=== PATIENT | male | born 1945 ===

== ENCOUNTER 2018-05-02 08:54 | Inpatient (IN) | payer MEDICARE, MEDICAID ==
[2018-05-02 09:06] VITALS: BMI 23.6
[2018-05-02] MEDS ORDERED: Morphine 4 MG/ML VIAL IVP ONE (09:46)
--- NOTE | 2018-05-02 09:58 | ED PDOC ---
HPI: Back History Per: Patient, Family (daughter in law in room) History/Exam Limitations: no limitations Onset/Duration Of Symptoms: Hrs Current Symptoms Are (Timing): Still Present Quality Of Discomfort: Sharp, Cramping Pain Scale Rating Of: 8 Exacerbating Factor(s): Nothing Additional Complaint(s): CC: "I have pain in my back and left side" HPI:72 yo male with unremarkable PMHx, presents with c/o left sided lower back and flank pain that started last night after going to bed, the pain is sharp and most of the time constant, intensity is 7 to 8/10, does not change with movements or change of positions, radiates to the left testicle and inner aspect of thigh, accompanied by mild urinary discomfort and diarrhea only x 1 last night. Patient is a poor historian and part of the history is obtained from daughter in law present in room, denies any previous Dx of chronic disease , patient has not visited a doctor in years and denies taking any medication, denies fever, chills, CHO, chest pain, urinary frequency, urinary retention or incontinence, hematuria, hematochezia, LE weakness, paresthesias, or wt loss. PMD: Patient has no doctor - Risk Factors AAA Risk Factors: Pos: Older Than 49 Years Of Age <Torres Dick - Last Filed: 05/02/18 14:18> <Janiya Davalos - Last Filed: 05/02/18 14:26> Time Seen by Provider: 05/02/18 09:15 Chief Complaint (Nursing): Back Pain Past Medical History Reviewed: Historical Data, Nursing Documentation, Vital Signs Vital Signs: Last Vital Signs Temp 97.8 F 05/02/18 09:05 Pulse 68 05/02/18 09:05 Resp 16 05/02/18 09:05 BP 162/91 H 05/02/18 09:05 Pulse Ox 98 05/02/18 09:05 - Medical History PMH: No Chronic Diseases - Surgical History Surgical History: No Surg Hx - Family History Family History: States: Unknown Family Hx - Living Arrangements Living Arrangements: With Family - Social History Current smoker - smoking cessation education provided: No Ex-Smoker (has not smoked in the last 12 months): No Alcohol: None Drugs: Denies <Torres Dick - Last Filed: 05/02/18 14:18> Vital Signs: Last Vital Signs Temp 97.8 F 05/02/18 09:05 Pulse 68 05/02/18 09:05 Resp 16 05/02/18 09:05 BP 162/91 H 05/02/18 09:05 Pulse Ox 98 05/02/18 10:38 <SusannahInessamarjorie Bishop - Last Filed: 05/02/18 14:26> - Home Medications Home Medications: Ambulatory Orders Medication Instructions Recorded No Known Home Med 05/02/18 - Allergies Allergies/Adverse Reactions: Allergies Allergy/AdvReac Type Severity Reaction Status Date / Time No Known Allergies Allergy Verified 05/02/18 09:37 Supervising Attending Note - Supervising Attending Note The Documented history was done by the: Physician Pencils Washer, Attending Physician The documented physical exam was done by the: Physician Pencils Washer, Attending Physician The documented procedures were done by the: Physician Pencils Washer, Attending Physician - Attestation: I have personally seen and examined this patient.: Yes I have fully participated in the care of the patient.: Yes I have reviewed all pertinent clinical information: Yes <Janiya Davalos - Last Filed: 05/02/18 14:26> Review of Systems Constitutional: Negative for: Fever, Chills, Weakness Cardiovascular: Negative for: Chest Pain, Palpitations, Edema Respiratory: Negative for: Shortness of Breath, SOB with Exertion Gastrointestinal: Negative for: Nausea, Hematochezia Genitourinary Male: Negative for: Incontinence Neurological: Negative for: Weakness, Numbness <Torres Dick - Last Filed: 05/02/18 14:18> ROS Statement: Except As Marked, All Systems Reviewed And Found Negative <Janiya Davalos - Last Filed: 05/02/18 14:26> Physical Exam - Reviewed Nursing Documentation Reviewed: Yes Vital Signs Reviewed: Yes - Physical Exam Appears: Positive for: Uncomfortable Head Exam: Positive for: ATRAUMATIC, NORMOCEPHALIC Skin: Positive for: Normal Color, Warm Eye Exam: Positive for: EOMI, PERRL ENT: Positive for: Pharynx Is (moist, no erythema) Neck: Positive for: Painless ROM, Supple Cardiovascular/Chest: Positive for: Regular Rate, Rhythm. Negative for: Edema, JVD Respiratory: Positive for: Normal Breath Sounds Gastrointestinal/Abdominal: Positive for: Bowel Sounds, Soft. Negative for: Tenderness, Mass, Distended, Guarding Male Genital Exam: Positive for: normal genitalia Back: Positive for: L CVA Tenderness. Negative for: Vertebral Tenderness, Muscle Spasm Extremity: Positive for: Normal ROM. Negative for: Pedal Edema Neurologic/Psych: Positive for: Alert, Oriented <Torres Dick - Last Filed: 05/02/18 14:18> - Laboratory Results Result Diagrams: 05/02/18 10:25 05/02/18 10:50 - ECG O2 Sat by Pulse Oximetry: 98 <Torres Dick - Last Filed: 05/02/18 14:18> - Laboratory Results Result Diagrams: 05/02/18 10:25 05/02/18 10:50 <Janiya Davalos Dario - Last Filed: 05/02/18 14:26> Medical Decision Making Medical Decision Makin At this time patient does not meet sepsis criteria, since he meets only 1/ 4 SIRS criteria, even with elevated lactic acid. 1300 Upon further questioning, Per patient and daughter he has seen Dr Alcantara as his PCP once in the past. [address] Verdin who agrees with current management and admission. No interventions are indicated at this time. <Janiya Davalos Dario - Last Filed: 05/02/18 14:26> Disposition <Torres Dick - Last Filed: 05/02/18 14:18> - Patient ED Disposition Is Patient to be Admitted: Yes Discussed With : Raghavendra Oro Doctor Will See Patient In The: Hospital Counseled Patient/Family Regarding: Studies Performed, Diagnosis - Disposition Disposition Time: 13:30 - Pt Status Changed To: Hospital Disposition Of: Inpatient - Admit Certification Admit to Inpatient:: After my assessment, the patient will require hospitalization for at least two midnights. This is because of the severity of symptoms shown, intensity of services needed, and/or the medical risk in this patient being treated as an outpatient. - POA Present On Arrival: Poor Glycemic Control <Janiya Davalos - Last Filed: 05/02/18 14:26> - Clinical Impression Clinical Impression: Left ureteral calculus, UTI (urinary tract infection), Hyperglycemia - Disposition Condition: FAIR
[2018-05-02 11:18] LABS: BASO % 0.1 % (0.0-2.0); HEMOGLOBIN 15.8 g/dL (12.0-18.0); LYMPH # 0.8 K/uL (1.0-4.3); LYMPH % 5.1 % (20.0-40.0); MEAN CELL VOLUME 94.1 fl (80.0-94.0); MEAN CORPUSCULAR HEMOGLOBIN 33.2 pg (27.0-31.0); MEAN CORPUSCULAR HGB CONC 35.2 g/dL (33.0-37.0); MEAN PLATELET VOLUME 9.3 fl (7.2-11.7); MONO # 0.9 K/uL (0.0-0.8); NEUT # 13.6 K/uL (1.8-7.0); NEUT % 88.8 % (50.0-75.0); NRBC % 0.1 % (0.0-0.0); PLATELET COUNT 142 K/uL (130-400); RBC 4.78 Mil/uL (4.40-5.90); RED CELL DISTRIBUTION WIDTH 12.7 % (11.5-14.5); WHITE BLOOD COUNT 15.3 K/uL (4.8-10.8)
[2018-05-02 11:31] LABS: BLOOD UREA NITROGEN 18 mg/dl (9-20); CALCIUM 9.1 mg/dL (8.4-10.2); GFR AFRICAN-AMERICAN > 60; GFR NON-AFRICAN AMERICAN > 60
[2018-05-02 11:33] LABS: URINE BILIRUBIN NEGATIVE (NEGATIVE); URINE BLOOD LARGE (NEGATIVE); URINE CLARITY CLOUDY (Clear); URINE COLOR YELLOW (YELLOW); URINE GLUCOSE (UA) >=500 mg/dL (Normal); URINE LEUKOCYTE ESTERASE NEG Leu/uL (Negative); URINE PROTEIN 30 mg/dL (NEGATIVE); URINE UROBILINOGEN 0.2-1.0 mg/dL (0.2-1.0)
[2018-05-02] MEDS ORDERED: Iohexol 300 100 ML IJ ONE (11:42)
[2018-05-02] MEDS ORDERED: Sodium Chloride 0.9% 50 ML IV ONE (11:43)
[2018-05-02] MEDS ORDERED: Sodium Chloride 0.9% 1,000 ML IV STA (11:50)
[2018-05-02 11:58] LABS: SQUAMOUS EPITHIAL 1 /hpf (0-5); URINE BACTERIA FEW (<OCC)
[2018-05-02] MEDS ORDERED: cefTRIAXone (Rocephin) 1 gm Inj ONE (12:44)
[2018-05-02 12:48] LABS: VENOUS BLOOD GAS BASE EXCESS -4.5 mmol/L (0.0-2.0); VENOUS BLOOD GAS PCO2 43 mmHg (40-60); VENOUS BLOOD GAS PO2 28 mm/Hg (30-55); VENOUS BLOOD PH 7.31 (7.32-7.43)
--- NOTE | 2018-05-02 12:58 | CT ---
Date of service: 05/02/2018 PROCEDURE: CT Abdomen and Pelvis with contrast HISTORY: left flank pain COMPARISON: None. TECHNIQUE: Postcontrast images were obtained through the abdomen and pelvis at approximately 60 seconds post administration. A delayed scan was performed through the abdomen and pelvis at approximately 5 minutes post administration. Contrast dose: 80 cc Omnipaque 300 Radiation dose: Total exam DLP = 616.74 mGy-cm. This CT exam was performed using one or more of the following dose reduction techniques: Automated exposure control, adjustment of the mA and/or kV according to patient size, and/or use of iterative reconstruction technique. FINDINGS: LOWER THORAX: No infiltrate/effusion. Small hiatal hernia. LIVER: Unremarkable. No gross lesion or ductal dilatation. GALLBLADDER AND BILE DUCTS: Unremarkable. PANCREAS: Unremarkable. No gross lesion or ductal dilatation. SPLEEN: Unremarkable. ADRENALS: Unremarkable. No mass. KIDNEYS AND URETERS: There is a 3 mm obstructing distal left ureteral calculus just proximal to the ureterovesical junction. There is no significant hydroureter. There is left perinephric fluid. There is minimal left hydronephrosis. The findings are indicative of an obstructing urinary collecting system with forniceal rupture and perinephric urinoma. Delayed images demonstrate persistent bright nephrographic contrast in the left kidney, asymmetric compared to the right. This is consistent with an obstructive process. In addition, there are multiple left parapelvic cysts. This is best demonstrated on the delayed images. There is a 3 mm nonspecific low-density lesion in the lower pole of the right kidney, likely a cortical cyst. No other renal mass. No renal calculus is appreciated. VASCULATURE: Unremarkable. No aortic aneurysm. BOWEL: Unremarkable. No obstruction. No gross mural thickening. APPENDIX: Normal appendix. PERITONEUM: Unremarkable. No free fluid. No free air. LYMPH NODES: Unremarkable. No enlarged lymph nodes. BLADDER: Unremarkable. REPRODUCTIVE: Normal prostate BONES: No acute fracture. OTHER FINDINGS: None. IMPRESSION: Obstructing 3 mm distal left ureteral calculus. Small left perinephric urine collection. Multiple small left parapelvic renal cysts. No renal calculus. Small hiatal hernia. No other significant abnormality.
[2018-05-02 14:42] LABS: BANDS 1 % (0-2); LYMPHOCYTE 4 % (20-50); MONOCYTE 4 % (0-10); NEUTROPHIL 90 % (42-75); PLATELET ESTIMATE NORMAL (NORMAL); REACTIVE LYMPHOCYTES 1 % (0-0); TOTAL CELLS COUNTED 100
--- NOTE | 2018-05-02 15:00 | RAD ---
Date of service: 05/02/2018 HISTORY: admission COMPARISON: No prior. FINDINGS: LUNGS: No active pulmonary disease. PLEURA: No significant pleural effusion identified, no pneumothorax apparent. CARDIOVASCULAR: Normal. OSSEOUS STRUCTURES: No significant abnormalities. VISUALIZED UPPER ABDOMEN: Normal. OTHER FINDINGS: None. IMPRESSION: No active disease.
--- NOTE | 2018-05-02 16:05 | CARD ---
APPROVED REPORT Date of service: 05/02/2018 EKG Measurement Heart [id number] [id number] <Conclusion> Normal sinus rhythm Normal ECG
[2018-05-02 16:36] LABS: VENOUS BLOOD GAS BASE EXCESS -2.9 mmol/L (0.0-2.0); VENOUS BLOOD GAS PCO2 41 mmHg (40-60); VENOUS BLOOD GAS PO2 33 mm/Hg (30-55); VENOUS BLOOD PH 7.35 (7.32-7.43)
[2018-05-02] MEDS ORDERED: Sodium Chloride 0.9% 1,000 ML IV SCH (19:45)
[2018-05-03] MEDS: Pneumococcal 23-Valent Vaccine IM ONE ×2 (06:52→08:27)
[2018-05-03 06:58] LABS: HEMOGLOBIN 14.1 g/dL (12.0-18.0); MEAN CELL VOLUME 94.1 fl (80.0-94.0); MEAN CORPUSCULAR HGB CONC 35.1 g/dL (33.0-37.0); RBC 4.28 Mil/uL (4.40-5.90); RED CELL DISTRIBUTION WIDTH 12.8 % (11.5-14.5)
[2018-05-03 08:13] VITALS: RESP 20; O2SAT 97
[2018-05-03] MEDS ORDERED: cefTRIAXone 2 GM in Sodium Chloride 0.9% 100 ML IVPB SCH (09:00)
--- NOTE | 2018-05-03 13:36 | CP.PCM.HP ---
History of Present Illness - History of Present Illness History of Present Illness: CC: Low back/L flank pain. 72 y/o M, No chronic PMHx, came to ER [facility] on 05/02/18, to be evaluated for Left Lower Back pain, onset night [employer], Not taking medications and no relief. Pt appeared in the ED c/o of left lower back abdominal pain, described ad sharp , continue, cramping type, moderate to severe intensity 7-8:10 associated to L Flank pain, radiating to L Testicle and inner of thighs. Worsening symptoms: Mild urinary discomfort, diarrhea x1 on night [employer]. Pain does not changed with movements or exercise. Aggravated factor: Poor historian, not seen by a medical doctor in years. NO: Fever, chills, n/v, hematuria, hematochezia, CP, palpitations, weakness, syncope, SOB, cough, sick contact, recent travel out of [facility]. Abd/Pelv CT showed: Obstructing 3 mm distal L urethral calculus. Multiple small left parapelvic renal cysts, small hiatus hernia. Present on Admission - Present on Admission Any Indicators Present on Admission: No Review of Systems - Constitutional Constitutional: Other (negative) - EENT Eyes: Other (negative) Ears: Other (negative) Nose/Mouth/Throat: Other (negative) - Cardiovascular Cardiovascular: Other (negative) - Respiratory Respiratory: Other (negative) - Gastrointestinal Gastrointestinal: Cramping, Diarrhea (x1) - Genitourinary Genitourinary: Flank Pain (left), Other (urinary disconfort.) - Musculoskeletal Musculoskeletal: Back Pain (lower) - Integumentary Integumentary: Other (negative) - Neurological Neurological: Other (negative) - Psychiatric Psychiatric: Other (negative) - Endocrine Endocrine: Other (negative) - Hematologic/Lymphatic Hematologic: Other (negative) Past Patient History - Past Medical History & Family History Past Medical History?: No Pertinent Family History: Unknown - Past Social History Smoking Status: Never Smoked Alcohol: None Drugs: Denies Home Situation {Lives}: With Family - CARDIAC Hx Cardiac Disorders: No - PULMONARY Hx Respiratory Disorders: No - NEUROLOGICAL Hx Neurological Disorder: No - HEENT Hx HEENT Problems: No - RENAL Hx Chronic Kidney Disease: No - ENDOCRINE/METABOLIC Hx Endocrine Disorders: No - HEMATOLOGICAL/ONCOLOGICAL Hx Blood Disorders: No - INTEGUMENTARY Hx Dermatological Problems: No - MUSCULOSKELETAL/RHEUMATOLOGICAL Hx Musculoskeletal Disorders: No Hx Falls: No - GASTROINTESTINAL Hx Gastrointestinal Disorders: No - GENITOURINARY/GYNECOLOGICAL Hx Genitourinary Disorders: No - PSYCHIATRIC Hx Psychophysiologic Disorder: No Hx Substance Use: No - SURGICAL HISTORY Hx Surgeries: No - ANESTHESIA Hx Anesthesia: No Meds Allergies/Adverse Reactions: Allergies Allergy/AdvReac Type Severity Reaction Status Date / Time No Known Allergies Allergy Verified 05/02/18 09:37 Physical Exam - Constitutional Appears: No Acute Distress - Head Exam Head Exam: NORMAL INSPECTION - Eye Exam Eye Exam: PERRL - ENT Exam ENT Exam: Normal Exam - Neck Exam Neck exam: Positive for: Normal Inspection - Respiratory Exam Respiratory Exam: Clear to Auscultation Bilateral - Cardiovascular Exam Cardiovascular Exam: REGULAR RHYTHM - GI/Abdominal Exam GI & Abdominal Exam: Normal Bowel Sounds, Soft - Extremities Exam Extremities exam: Positive for: normal inspection - Back Exam Back exam: NORMAL INSPECTION - Neurological Exam Neurological exam: Alert, CN II-XII Intact, Oriented x3 Additional comments: No motor/sensory deficit. - Psychiatric Exam Psychiatric exam: Normal Affect - Skin Skin Exam: Warm Results - Vital Signs Recent Vital Signs: Last Vital Signs Temp 98.2 F 05/03/18 08:13 Pulse 67 05/03/18 08:13 Resp 20 05/03/18 08:13 BP 128/71 05/03/18 08:13 Pulse Ox 97 05/03/18 08:13 reviewed Renuka - Labs Result Diagrams: 05/03/18 15:39 05/03/18 15:39 Labs: Laboratory Results - last 24 hr 05/02/18 05/02/18 05/03/18 10:25 16:27 05:30 WBC 7.0 D RBC 4.28 L Hgb 14.1 Hct 40.3 MCV 94.1 H MCH 33.0 H MCHC 35.1 RDW 12.8 Plt Count 106 L D Neutrophils % (Manual) 90 H Band Neutrophils % 1 Lymphocytes % (Manual) 4 L Reactive Lymphs % 1 H Monocytes % (Manual) 4 Platelet Estimate Normal RBC Morphology Normal pO2 33 VBG pH 7.35 VBG pCO2 41 VBG HCO3 21.6 VBG Total CO2 23.9 VBG O2 Sat (Calc) 73.1 H VBG Base Excess -2.9 L VBG Potassium 4.2 Sodium 138.0 Chloride 104.0 Glucose 128 H Lactate 4.0 H* FiO2 21.0 Crit Value Called To Sayda bardales Crit Value Called By Jyothi winter Crit Value Read Back Y Blood Gas Notified Time 1635 Thyroxine (T4) Venous Blood Potassium 4.2 05/03/18 05:30 WBC RBC Hgb Hct MCV MCH MCHC RDW Plt Count Neutrophils % (Manual) Band Neutrophils % Lymphocytes % (Manual) Reactive Lymphs % Monocytes % (Manual) Platelet Estimate RBC Morphology pO2 VBG pH VBG pCO2 VBG HCO3 VBG Total CO2 VBG O2 Sat (Calc) VBG Base Excess VBG Potassium Sodium Chloride Glucose Lactate FiO2 Crit Value Called To Crit Value Called By Crit Value Read Back Blood Gas Notified Time Thyroxine (T4) 8.53 Venous Blood Potassium reviewed J.P. - EKG Data EKG comments: reviewed J.P. - Imaging and Cardiology Chest x-ray Status: Report reviewed by me (J.P.) Assessment & Plan (1) Left ureteral calculus Status: Acute Priority: High (2) UTI (urinary tract infection) Status: Acute Priority: High (3) Hyperglycemia Status: Acute Priority: High - Assessment and Plan (Free Text) Plan: Pt seen by Urology wardrobe image consultant and cleared by him for discharge on Rocephin, Flomax. Urology wardrobe image consultant expect Pt passed the stone. Pt with no complaint of abdominal back or flank pain, stable to be discharged, f/u PMD and f/u with Urology wardrobe image consultant Dr. Frost. - Date & Time Date: 05/03/18 Time: 11:30
[2018-05-03 15:44] LABS: BASO % 0.4 % (0.0-2.0); EOS % 0.7 % (0.0-4.0); HEMOGLOBIN 14.3 g/dL (12.0-18.0); LYMPH # 1.1 K/uL (1.0-4.3); LYMPH % 18.2 % (20.0-40.0); MEAN CELL VOLUME 94.5 fl (80.0-94.0); MEAN CORPUSCULAR HEMOGLOBIN 32.5 pg (27.0-31.0); MEAN CORPUSCULAR HGB CONC 34.4 g/dL (33.0-37.0); MEAN PLATELET VOLUME 8.9 fl (7.2-11.7); MONO # 0.5 K/uL (0.0-0.8); MONO % 8.7 % (0.0-10.0); NEUT # 4.2 K/uL (1.8-7.0); NRBC % 0.1 % (0.0-0.0); RBC 4.4 Mil/uL (4.40-5.90); RED CELL DISTRIBUTION WIDTH 13.4 % (11.5-14.5); WHITE BLOOD COUNT 5.9 K/uL (4.8-10.8)
[2018-05-03 15:48] VITALS: BP 119/69; PULSE 66; TEMP 97.9
[2018-05-03 16:13] LABS: ALB/GLOB RATIO 1.4 (1.0-2.1); ALBUMIN 3.5 g/dL (3.5-5.0); ALT/SGPT 35 U/L (21-72); AST/SGOT 58 U/L (17-59); BLOOD UREA NITROGEN 20 mg/dl (9-20); CALCIUM 8.3 mg/dL (8.4-10.2); GFR AFRICAN-AMERICAN > 60; GFR NON-AFRICAN AMERICAN 54
--- NOTE | 2018-05-04 00:47 | CON ---
DATE: 05/03/2018 COMPREHENSIVE UROLOGY CONSULTATION TIME OF CONSULTATION: Roughly 1:40 p.m [facility]
--- NOTE | 2018-05-04 01:35 | CON ---
DATE: 05/03/2018 COMPREHENSIVE UROLOGY CONSULTATION TIME OF CONSULTATION: Roughly 2:00 p.m. BRIEF HISTORY: The patient is a 72-year-old male with a history of acute onset of left renal colic, which began early in the a.m. of the date of his admission 05/02/2018, requiring him to come to [facility] Emergency Room. An abdominopelvic CT stone survey showed a 3-mm obstructing distal left ureteral stone just above the left UVJ. There was no significant hydroureter. There was some left perinephric fluid and minimal left hydronephrosis. There were multiple left parapelvic cysts. There was a 3-mm nonspecific low-density lesion in the lower pole of the right kidney, likely a cortical cyst. No renal mass. No renal calculus appreciated. There were some findings consistent with possible forniceal rupture and perinephric urinoma. The bladder was unremarkable. The pain was completely controlled in the emergency room; however, the laboratory evaluation showed an elevated white count of 15.3 indicating reason for admission for this patient. However on IV Rocephin, his white count completely decreased back down to normal and is currently down at 7 on IV Rocephin on 05/03/2018. He now is completely pain free and wants to go home. He has no other surgical or medical history. MEDICATIONS: He does not take any medications at home. FAMILY HISTORY: His brother has a history of kidney stones. There is no family history of any prostate cancer or cancer. The patient has no history of any prostate cancer. SOCIAL HISTORY: He is a nonsmoker. No history of any alcohol use. ALLERGIES: HE HAS NO KNOWN ALLERGIES TO ANY MEDICATIONS. PHYSICAL EXAMINATION TODAY: GENERAL: He is a well-developed, well-nourished male. He is alert and oriented. HEENT EXAMINATION: Grossly within normal limits. NECK: Supple. Thyroid not palpable. ABDOMEN: Soft, nondistended, and nontender. No left CVA tenderness. No suprapubic tenderness. EXTREMITIES: He has full range of motion in both upper and lower extremities without limitations. No leg edema or calf tenderness present. GENITALIA: The patient is not circumcised with a normal glans and meatus without any rashes or lesions visualized. Testes are down bilaterally, nontender without any masses. RECTAL EXAMINATION: Normal rectal tone without fluctuance or masses. Prostate is average size, smooth, symmetrical, nontender without nodules or indurations with a palpable median sulcus. LABORATORY DATA: Laboratory evaluation on admission: WBC was 15.3, hemoglobin 15.8, hematocrit 45 with a platelet count of 142,000. His current CBC on 05/03/2018 showed a white count now down to 7, hemoglobin 14.1, hematocrit 40.3 with a platelet count of 106,000. His chem profile on admission showed a sodium of 138, potassium 3.6, chloride 104, CO2 of 17, BUN and creatinine 18 and 0.9 respectively with a GFR of greater than 60. His random glucose is 237. Calcium 9.1. His urinalysis also on admission showed the color was yellow, appearance is cloudy, pH 5, specific gravity 1.025, protein 30, glucose greater than 500, ketones 20, blood large, nitrites and bilirubin both negative; urobilinogen 0.2 to 1, leukocyte esterase negative, rbc's 47, wbc's 3 and bacteria few. UROLOGIC DIAGNOSTIC IMPRESSION: For this patient, 1. Left renal colic, completely resolved at this time. 2. Microscopic hematuria. 3. Obstructing 3-mm distal left ureteral stone with minimal hydronephrosis. PLAN: Plan for this patient is to discharge the patient home today on Flomax 0.4 mg daily, Ceftin 500 mg b.i.d. for 10 days, and ibuprofen 600 mg p.o. every 6 hours on p.r.n. basis with food and milk. The patient can be seen in office followup in two weeks. This case was completely discussed with Dr. Oro, his PCP. Juan Ramon Frost MD [facility]
== END 2018-05-03 17:58 | disposition home or self-care (01) | DRG 690 ==
LOC: H.ER 08:54 → H.ERHOLD 14:08 → H.MEDSURG1 15:12
PROVIDERS: ADMIT Internal Medicine Pulmonary Disease; ATTEND Internal Medicine Pulmonary Disease
DX: N13.6 Pyonephrosis (principal); N39.0 Urinary tract infection, site not specified; N28.1 Cyst of kidney, acquired; R31.29 Other microscopic hematuria; N23 Unspecified renal colic; K44.9 Diaphragmatic hernia without obstruction or gangrene; R73.9 Hyperglycemia, unspecified; Z89.511 Acquired absence of right leg below knee